=== PATIENT | female | born 1990 | race Two or more races ===

== ENCOUNTER 2024-11-01 23:13 | Outpatient (CLI) | payer OTHER ==
[~2024-11-01] VITALS: Ht 142.2 cm; Wt 56.4 kg
[2024-11-01] MEDS ORDERED: PRENTAB9 PO (23:32)
[2024-11-01 23:36] VITALS: BP 121/74
== END 2024-11-02 01:42 | disposition home or self-care (01) ==
LOC: M LDO 23:13
PROVIDERS: ATTEND Obstetrics & Gynecology
DX: O47.1 False labor at or after 37 completed weeks of gestation (principal); O24.410 Gestational diabetes mellitus in pregnancy, diet controlled; Z3A.38 38 weeks gestation of pregnancy
CPT/HCPCS: 59025; G0463